=== PATIENT | male | born 1965 | race Caucasian/White ===

== ENCOUNTER 2016-04-02 19:12 | Emergency (ER) | payer SELFPAY ==
[~2016-04-02] VITALS: Ht 180.3 cm; Wt 86.0 kg
[~2016-04-02 19:12] MED LIST: KETO10; Z.0.UNKNOWN
[2016-04-02 19:14] VITALS: BP 193/104; PULSE 77; RESP 14; TEMP 98.1; O2SAT 97
--- NOTE | 2016-04-02 20:19 | PD ---
HPI Chief Complaint: Injury Time Seen by Provider: 20:10 Travel History International Travel<30 days: No Contact w/Intl Traveler<30days: No Traveled to known affect area: No History of Present Illness HPI This is a 50-year-old male who presents for evaluation of right knee pain. He reports that this morning he slipped on a step and hyperflexed his right knee. He felt a crackling sensation in his right knee. Since then he has had an aching pain in his right knee that is constant and worse with ambulation. He has not tried using any medication for symptom relief. He does note that 35-37 years ago he had an unknown surgical operation on his right knee. Denies any major medical issues. He has no other complaints at this time. [facility] Past Medical History Hypertension: Yes Social History Alcohol Use: Yes (3-4 TIMES A WEEK BEER) Tobacco Use: Yes (3 CIG WHEN DRINKING) Substance Use: No Allergies-Medications (Allergen,Severity, Reaction): Coded Allergies: No Known Allergies (Verified , 04/02/16) Reported Meds & Prescriptions Reported Meds & Active Scripts Active Reported Unknown Meds (Miscellaneous Medication) Misc Toradol (Ketorolac Tromethamine) 10 Mg Tab Review of Systems Except as stated in HPI: all other systems reviewed are Neg Physical Exam Narrative GENERAL: Well-developed well-nourished male in no acute distress SKIN: Warm and dry. CARDIOVASCULAR: Regular rate and rhythm. No murmur appreciated. RESPIRATORY: No accessory muscle use. Clear to auscultation. Breath sounds equal bilaterally. Extremities: Right knee joint effusion is present. There is generalized tenderness to palpation to the right knee joint with no obvious bony deformity. Stress examination is limited secondary to joint effusion. The patient maintains good flexion and extension of the right knee albeit with some pain. Distal pulses are intact. No calf tenderness, the Achilles tendon is intact and nontender. Data Data Last Documented VS Vital Signs Date Time Temp Pulse Resp B/P Pulse Ox O2 Delivery O2 Flow Rate FiO2 04/02/16 19:14 98.1 77 14 193/104 97 Room Air Orders Knee, Complete (4vws) (04/02/16 ) Ice/Cold Pack (04/02/16 20:16) Splint Or Brace Apply/Monitor (04/02/16 21:25) MDM Medical Decision Making Medical Screen Exam Complete: Yes Emergency Medical Condition: Yes Medical Record Reviewed: Yes Interpretation(s) Right knee x-ray CONCLUSION: 1. Moderate osteoarthritis. Small joint effusion. Previous ACL repair. Differential Diagnosis Right knee ligamentous disruption, meniscal disruption, patellar tendon rupture , tibial plateau fracture, dislocation, sprain, bursitis Narrative Course This is a 50-year-old male who presents with right knee pain which developed this morning after hyperflexing his right knee while walking down some stairs. On examination he has a right knee effusion, generalized tenderness to palpation. X-ray imaging is been ordered. An ice pack will be applied. X-ray reveals joint effusion, no acute bony abnormalities. Plan is to discharge the patient with knee immobilizer, he has crutches at home, advised outpatient follow-up with primary care physician for MRI imaging. He is stable for discharge. Diagnosis Primary Impression: Internal derangement of right knee Additional Instructions: As discussed, apply ice pack several times a day 10-15 minutes at a time. Crutches as needed. Take Tylenol or Motrin for discomfort. Follow-up with primary care physician next week likely for outpatient MRI imaging. Return for any emergent medical conditions. Med/Other Pt SpecificInfo: No Change to Meds Disposition: 01 DISCHARGE HOME Condition: Stable Eliezer Coronel Apr 02, 2016 20:19
--- NOTE | 2016-04-02 21:00 | RADRPT ---
EXAM DATE/TIME: 04/02/2016 20:35 [facility] COMPARISON: No previous studies available for comparison. INDICATIONS : Patient fell down stairs today. Complains of right knee pain. MEDICAL HISTORY : None. SURGICAL HISTORY : Tendon repair in right knee. ENCOUNTER: Initial ACUITY: 1 day PAIN SCORE: 6/10 LOCATION: Right Knee FINDINGS: There is moderate osteoarthritis of the right knee. Small to moderate knee joint effusion. Chondrocal cinosis noted. Previous ACL repair. CONCLUSION: 1. Moderate osteoarthritis. Small joint effusion. Previous ACL repair. Jose Ramon Carrasquillo MD on April 02, 2016 at 20:57 Board Certified Radiologist. This report was verified electronically.
== END 2016-04-02 22:04 | disposition home or self-care (01) ==
LOC: NEPB 19:12
DX: M23.91 Unspecified internal derangement of right knee (principal); X50.9XXA Other and unspecified overexertion or strenuous movements or postures, initial encounter; Y93.89 Activity, other specified; Y92.9 Unspecified place or not applicable; Y99.9 Unspecified external cause status
CPT/HCPCS: 73564; 99283; E0113; L1830